=== PATIENT | female | born 1990 | race Caucasian/White ===

== ENCOUNTER 2016-09-08 12:27 | Emergency (ER) | payer BC ==
[2016-09-08] MEDS ORDERED: SODIUM CHLORIDE 0.9% 500 ML IV STA (13:10)
[2016-09-08] MEDS ORDERED: RX INFO: IV CONTRAST WAS GIVEN 1 EACH MISC MISCELLANE PRN (13:10)
[2016-09-08] MEDS ORDERED: SODIUM CHLORIDE 0.9% 1,000 ML IV STA (13:10)
--- NOTE | 2016-09-08 14:25 | ED ---
Abdominal Pain HPI - General Chief Complaint: Abdominal Pain Stated Complaint: Abd Pain Time Seen by Provider: 09/08/16 12:53 Source: patient Mode of arrival: ambulatory Limitations: no limitations - History of Present Illness Initial Comments: Abdominal pain for the last 3 days, it got worse today she was seen in by an urgent care and they did the test, it was negative then did x-ray that shows some dilated bowel loops of small intestine they advised her to come to the ER he denies any gallbladder or appendix related to surgery she does have a history of 1 denies any history of kidney stones and is any fever no chills no nausea no vomiting does have a chronic history of constipation. Review of system is unremarkable otherwise - Related Data Previous Rx's Medication Instructions Recorded Ciprofloxacin HCl [Cipro] 500 mg PO Q12HR #20 tablet 09/08/16 metroNIDAZOLE [Flagyl] 500 mg PO Q8HR #30 tab 09/08/16 Allergies Allergy/AdvReac Type Severity Reaction Status Date / Time No Known Allergies Allergy Verified 09/08/16 12:51 Review of Systems ROS Statement: Those systems with pertinent positive or pertinent negative responses have been documented in the HPI. ROS Other: All systems not noted in ROS Statement are negative. Past Medical History Past Medical History: No Reported History Additional Past Medical History / Comment(s): Migraine headaches, irritable bowel syndrome History of Any Multi-Drug Resistant Organisms: None Reported Past Surgical History: Section Additional Past Surgical History / Comment(s): Ganglion cystectomy on left wrist Past Anesthesia/Blood Transfusion Reactions: No Reported Reaction Past Psychological History: Anxiety Smoking Status: Never smoker Past Alcohol Use History: None Reported Past Drug Use History: None Reported - Past Family History Mother Family Medical History: Hypertension General Exam - General Exam Comments Initial Comments: General: The patient is awake and alert, in no distress, and does not appear acutely ill. Skin: Skin is warm and dry and no rashes or lesions are noted. Eye: Pupils are equal, round and reactive to light, extra-ocular movements are intact; there is normal conjunctiva bilaterally. Ears, nose, mouth and throat: There are moist mucous membranes and no oral lesions. Neck: The neck is supple, there is no tenderness or JVD. Cardiovascular: There is a regular rate and rhythm. No murmur, rub or gallop is appreciated. Respiratory: To auscultation bilateral, no wheezing no rhonchi no distress respiratory stroud noticed Gastrointestinal: Tender in left upper quadrant area as well as left flank area positive bowel sounds no guarding no rebounds Back: There is no tenderness to palpation in the midline. There is no obvious deformity. Musculoskeletal: Normal ROM, no tenderness, There is no pedal edema. There is no calf tenderness or swelling. No cords were appreciated. Neurological: CN II-XII intact, Cranial nerves III through XII are intact. There are no obvious motor or sensory deficits. Coordination appears grossly intact. Speech is normal. Psychiatric: Cooperative, appropriate mood & affect, normal judgment. Limitations: no limitations Course Vital Signs 09/08/16 09/08/16 09/08/16 12:32 14:17 15:22 Temperature 99.1 F 97.8 F Pulse Rate 115 H 88 100 Respiratory 20 16 16 Rate Blood Pressure 139/80 122/79 136/84 O2 Sat by Pulse 99 99 100 Oximetry - Reevaluation(s) Reevaluation #1: 09/08/16 17:01 He does have a history of for constipation though she is very young she is only 26 and recommended after completing a course of Cipro and Flagyl she sees Dr. Alanis/Afshan for colonoscopy exam make sure there is no pathology in the descending colon though she has a no history of ulcerative colitis or Crohn's disease either in the family. There was some free fluid or noticed around the cul-de-sac and the Dr. Rojas is her PRODUCT OW[employer] doctor she was encouraged to see Dr. Rojas Medical Decision Making - Lab Data Result diagrams: 09/08/16 14:15 09/08/16 14:15 Lab Results 09/08/16 09/08/16 09/08/16 Range/Units 13:45 14:15 14:15 WBC 9.8 (3.8-10.6) k/uL RBC 4.78 (3.80-5.40) m/uL Hgb 14.3 (11.4-16.0) gm/dL Hct 41.1 (34.0-46.0) % MCV 85.9 (80.0-100.0) fL MCH 29.8 (25.0-35.0) pg MCHC 34.8 (31.0-37.0) g/dL RDW 12.3 (11.5-15.5) % Plt Count 270 (150-450) k/uL Neutrophils % 73 % Lymphocytes % 20 % Monocytes % 5 % Eosinophils % 1 % Basophils % 0 % Neutrophils # 7.1 (1.3-7.7) k/uL Lymphocytes # 1.9 (1.0-4.8) k/uL Monocytes # 0.5 (0-1.0) k/uL Eosinophils # 0.1 (0-0.7) k/uL Basophils # 0.0 (0-0.2) k/uL Sodium 140 (137-145) mmol/L Potassium 3.7 (3.5-5.1) mmol/L Chloride 105 (98-107) mmol/L Carbon Dioxide 26 (22-30) mmol/L Anion Gap 9 mmol/L BUN 10 (7-17) mg/dL Creatinine 0.73 (0.52-1.04) mg/dL Est GFR (MDRD) Af Amer >60 (>60 ml/min/1.73 sqM) Est GFR (MDRD) Non-Af >60 (>60 ml/min/1.73 sqM) Glucose 115 H (74-99) mg/dL Calcium 8.8 (8.4-10.2) mg/dL Total Bilirubin 0.8 (0.2-1.3) mg/dL AST 17 (14-36) U/L ALT 18 (9-52) U/L Alkaline Phosphatase 75 (38-126) U/L Total Protein 7.2 (6.3-8.2) g/dL Albumin 4.1 (3.5-5.0) g/dL Amylase 59 (30-110) U/L Lipase 77 (23-300) U/L Urine Color Yellow Urine Appearance Cloudy H (Clear) Urine pH 6.5 (5.0-8.0) Ur Specific [place] 1.018 (1.001-1.035) Urine Protein Trace H (Negative) Urine Glucose (UA) Negative (Negative) Urine Ketones Negative (Negative) Urine Blood Small H (Negative) Urine Nitrite Negative (Negative) Urine Bilirubin Negative (Negative) Urine Urobilinogen 2.0 (<2.0) mg/dL Ur Leukocyte Esterase Large H (Negative) Urine RBC 2 (0-5) /hpf Urine WBC 85 H (0-5) /hpf Ur Squamous Epith Cells 5 H (0-4) /hpf Amorphous Sediment Occasional H (None) /hpf Urine Bacteria Occasional H (None) /hpf Urine Mucus Few H (None) /hpf Disposition Clinical Impression: Abdominal pain, Colitis, Cystitis Disposition: HOME SELF-CARE Instructions: Abdominal Pain (ED) Prescriptions: Ciprofloxacin HCl [Cipro] 500 mg PO Q12HR #20 tablet metroNIDAZOLE [Flagyl] 500 mg PO Q8HR #30 tab Referrals: None,Stated [Primary Care Provider] - 1-2 days Leonard Nazario MD [STAFF PHYSICIAN] - 1-2 days Yesi Rojas MD [STAFF PHYSICIAN] - 1-2 days
[2016-09-08 14:26] LABS: Basophils % (A) 0 %; CH 30.8; Eosinophils # (A) 0.1 k/uL (0-0.7); Eosinophils % (A) 1 %; HCT 41.1 % (34.0-46.0); HDW 2.67; HGB 14.3 gm/dL (11.4-16.0); Luc # (Auto) 0.11; Luc % (Auto) 1; Lymphocytes # (A) 1.9 k/uL (1.0-4.8); Lymphocytes % (A) 20 %; MCH 29.8 pg (25.0-35.0); MCHC 34.8 g/dL (31.0-37.0); MCV 85.9 fL (80.0-100.0); Mean Platelet Volume 6.5; Monocytes # (A) 0.5 k/uL (0-1.0); Monocytes % (A) 5 %; Neutrophils # (A) 7.1 k/uL (1.3-7.7); Neutrophils % (A) 73 %; RBC 4.78 m/uL (3.80-5.40); RDW 12.3 % (11.5-15.5); WBC 9.8 k/uL (3.8-10.6); WBC (Perox) 9.51
[2016-09-08 14:32] LABS: Amorphous Sediment,Urine Occasional /hpf; Appearance,Urine Cloudy (Clear); Bacteria,Urine Occasional /hpf; Bilirubin,Urine Negative (Negative); Glucose,Urine (UA) Negative (Negative); Ketones,Urine Negative (Negative); Leukocyte Esterase,Urine Large (Negative); Mucus,Urine Few /hpf; Nitrite,Urine Negative (Negative); PH, Urine 6.5 (5.0-8.0); Particle Count 8078; Protein,Urine Trace (Negative); RBC,Urine 2 /hpf (0-5); Specific Gravity,Urine 1.018 (1.001-1.035); Squamous Epithelial Cell,Urine 5 /hpf (0-4); UA Billing (MACRO vs. MICRO) MICRO; WBC,Urine 85 /hpf (0-5)
[2016-09-08 14:43] LABS: ALT 18 U/L (9-52); AST 17 U/L (14-36); Alkaline Phosphatase 75 U/L (38-126); Amylase 59 U/L (30-110); Anion Gap 9 mmol/L; Blood Urea Nitrogen 10 mg/dL (7-17); Calcium 8.8 mg/dL (8.4-10.2); Carbon Dioxide 26 mmol/L (22-30); Chloride 105 mmol/L (98-107); Glucose 115 mg/dL (74-99); Non-African American GFR(MDRD) >60 (>60 ml/min/1.73 sqM); Potassium 3.7 mmol/L (3.5-5.1); Sodium 140 mmol/L (137-145); Total Bilirubin 0.8 mg/dL (0.2-1.3); Total Protein 7.2 g/dL (6.3-8.2)
--- NOTE | 2016-09-08 14:59 | CT ---
EXAMINATION TYPE: CT abdomen pelvis w con DATE OF EXAM: 09/08/2016 2:50 PM COMPARISON: NONE HISTORY: Pain more on the Lt CT DLP: 1513 mGycm CONTRAST: CT scan of the abdomen and pelvis is performed without Oral Contrast and with IV Contrast, patient in jected with 100 mL of Omnipaque 300. FINDINGS: LUNG BASES-: No visible nodule. No infiltrate. LIVER/GB: No calcified gallstones. No space occupying hepatic lesion. Biliary tree is of normal ca liber. PANCREAS: No inflammation. No distinct mass. SPLEEN: No splenic enlargement. No lesion seen. ADRENALS: No nodule. No thickening. KIDNEYS/BLADDER: No hydronephrosis. No nephrolithiasis. No disctinct renal mass. Urinary bladder g rossly unremarkable. BOWEL: Normal appendix. Wall thickening involving the distal descending colon with surrounding mild i nflammatory change. The findings may reflect a mild diverticulitis although there are only a few scat tered tiny diverticula identified throughout the colon. Additional consideration is that of colitis. No evidence of perforation or abscess. Small bowel is of normal caliber. GENITAL ORGANS: Simple appearing right ovarian cyst at 2.4 cm. Left ovary is grossly unremarkable. F ree fluid within the cul-de-sac. Uterus is felt to be unremarkable. LYMPH NODES: No greater than 1cm abdominal or pelvic lymph nodes are appreciated. AORTA: No significant abnormality. OSSEOUS STRUCTURES: No significant abnormality is seen. OTHER: No significant additional abnormality is seen. IMPRESSION: 1. Distal descending colonic diverticulitis versus colitis. See above. 2. Free fluid within the cul-de-sac. Simple right ovarian cyst.
[2016-09-08] MEDS ORDERED: cefTRIAXone 2,000 MG in SODIUM CHLORIDE 0.9% 100 ML IVPB STA (15:02)
[2016-09-08] MEDS ORDERED: metroNIDAZOLE 500 MG TAB PO STA (15:03)
[2016-09-08 15:23] VITALS: TEMP 97.8
[2016-09-08 17:11] VITALS: BP 118/68; PULSE 81; RESP 18
== END 2016-09-08 17:11 | disposition home or self-care (01) ==
LOC: EC 12:27
DX: K52.9 Noninfective gastroenteritis and colitis, unspecified (principal); N30.90 Cystitis, unspecified without hematuria
CPT/HCPCS: 99284; 96365; 96361 ×2; 36415; 80053; 82150; 83690; 85025; 81001; 74177; J0696; Q9967

== ENCOUNTER → 2017-06-12 | Outpatient (CLI) | payer BC ==
--- NOTE | 2017-06-12 14:53 | NM ---
Nuclear medicine hepatobiliary scan. HISTORY: Pain. DOSAGE: The patient received 8 fluid oz. Ensure Plus. and 5.3 mCi of Technetium 99m Choletec. FINDINGS: There is normal hepatic extraction. The gallbladder is seen by 25minutes. There is bilia ry to bowel clearance by 25 minutes. Ejection fraction is 82%. IMPRESSION: 1. Normal filling of the gallbladder with no diagnostic evidence of cholecystitis. 2. Ejection fraction of 82% which can occasionally be seen with hyperdynamic gallbladder. Correlate c linically.
== END | disposition home or self-care (01) ==
LOC: RADNMMAIN 12:39
PROVIDERS: ATTEND Physician Assistant
DX: R10.11 Right upper quadrant pain (principal)
CPT/HCPCS: 78226; A9537

== ENCOUNTER → 2017-07-24 | Day surgery (SDC) | payer BC ==
[2017-06-23 15:35] VITALS: BMI 28.2
[~2017-07-24] MED LIST: BUPIVACAINE (PF) 0.25% 30 ML VIAL SQ ONE; DEXAMETHASONE SOD PHOSPHATE 10 MG/ML 1 ML VIAL IV ONE; GLYCOPYRROLATE 0.2 MG/ML 2 ML VIAL ONE; HEPARIN SODIUM,PORCINE 5,000 UNIT/ML 1 ML VIAL SQ ONE; HYDROcodone/APAP 7.5-325MG 1 EACH TAB PO ONE; HYDROmorphone 0.5 MG/0.5 ML SYRINGE IVP PRN; KETOROLAC 30 MG/ML 1 ML VIAL IVP ONE; LIDOCAINE 1% 20 ML VIAL (10MG/ML) FOR IV START INTRADERMA ONE; LIDOCAINE 1% INJ 10MG/ML (20 ML MDV) ONE; MIDAZOLAM 2 MG/2 ML VIAL ONE; MORPHINE SULFATE 10 MG/ML SYRINGE ONE; MORPHINE SULFATE 4 MG/ML SYRINGE IV PRN; NEOSTIGMINE 1 MG/ML 10 ML VIAL ONE; ONDANSETRON 4 MG/2 ML VIAL IVP ONE; ONDANSETRON 4 MG/2 ML VIAL IVP PRN; PROPOFOL 10 MG/ML 20 ML VIAL IV ONE; ROCURONIUM BROMIDE 10 MG/ML 10 ML VIAL IV ONE; ceFAZolin IN SWFI 2 GM/20 ML SYRINGE IVP ONE; diphenhydrAMINE 50 MG/ML 1 ML VIAL IVP ONE; diphenhydrAMINE 50 MG/ML 1 ML VIAL ONE; fentaNYL (PF) 50 MCG/ML 2 ML AMP ONE
[2017-07-24] MEDS: LACTATED RINGERS 1,000 ML IV SCH ×2 (07:15→07:55)
[2017-07-24] MEDS: MIDAZOLAM 2 MG/2 ML VIAL IV ONE ×2 (07:15→07:21)
--- NOTE | 2017-07-24 07:50 | P.GSHP ---
History of Present Illness H&P Date: 07/24/17 Chief Complaint: Right upper Quadrant pain The seventh 18-year-old female referred from Stefani Damico PA-C. Patient presents today for laparoscopic cholestatic. She's had complaints of right quadrant pain. Her recent HIDA scan shows elevated ejection fraction consistent with chronic: Cholecystitis and biliary hyperkinesia. Past Medical History Past Medical History: No Reported History Additional Past Medical History / Comment(s): HX NAUSEA ABD PAIN, DIVERTICULITIS , Migraine headaches, IBS History of Any Multi-Drug Resistant Organisms: None Reported Past Surgical History: Section Additional Past Surgical History / Comment(s): Ganglion cystectomy on left wrist Past Anesthesia/Blood Transfusion Reactions: No Reported Reaction Smoking Status: Never smoker - Past Family History Mother Family Medical History: Hypertension Medications and Allergies Home Medications Medication Instructions Recorded Confirmed Type No Known Home Medications [No 06/23/17 07/24/17 History Known Home Medications] Allergies Allergy/AdvReac Type Severity Reaction Status Date / Time No Known Allergies Allergy Verified 07/24/17 06:43 Surgical - Exam Vital Signs Temp Pulse Resp BP Pulse Ox 98.6 F 100 18 148/90 98 07/24/17 06:48 07/24/17 06:48 07/24/17 06:48 07/24/17 06:48 07/24/17 06:48 - General well developed, no distress - Eyes PERRL - ENT normal pinna - Respiratory normal expansion - Cardiovascular Rhythm: regular - Abdomen Abdomen: soft, non tender Assessment and Plan Assessment: Chronic cholecystitis Abnormal HIDA scan We will perform laparoscopic cholecystectomy
--- NOTE | 2017-07-24 08:53 | P.OP ---
Date of Procedure: 07/24/17 Preoperative Diagnosis: Cholecystitis Postoperative Diagnosis: Cholecystitis Procedure(s) Performed: Laparoscopic cholecystectomy Anesthesia: JASMIN Surgeon: Chandler Peña Estimated Blood Loss (ml): 5 Pathology: other (gAll bladder) Condition: stable Disposition: PACU Description of Procedure: The patient was placed on the operating table. The patient received a general endotracheal tube anesthesia. The patients abdomen was prepped and draped in the usual sterile fashion. Through an infraumbilical stab incision, the fascia of the anterior abdominal wall was grasped with a pair of Kochers and then the Veress needle was placed in the peritoneal cavity. Position of the Veress needle was confirmed with positive drop test. The abdomen was then insufflated. After adequate insufflation, the 10 mm trocar was placed in the peritoneal cavity. Following this the laparoscope was placed in the peritoneal cavity. The patient was placed in the head-up, right side up position and then a 5 mm trocar was placed in the right lateral and right subcostal position under direct visualization. A 8 mm trocar was placed in the epigastric position. The gallbladder was grasped in the fundus and infundibulum. Traction on the gallbladder was placed in the lateral and the cephalad positions. The triangle of Calot was visualized.. The cystic duct was bluntly dissected until the union of the cystic duct and common bile duct was seen. The cystic duct was then divided and sealed with the Harmonic scissors. A PDS Endoloop was then placed throughout the cystic duct stump. The cystic artery divided and sealed with the Harmonic scissors. The gallbladder was then removed from the liver bed using Harmonic scissors. The gallbladder was then extracted through the epigastric port site. Operative field was checked for any bleeding spots and Harmonic scissors was used to coagulate the liver bed. The abdomen was irrigated. The trocars were removed. The skin was closed using interrupted 3-0 Vicryl suture. Dermabond dressing were applied. The patient tolerated the procedure well.
[2017-07-24 09:00] VITALS: TEMP 97.2
[2017-07-24] MEDS: fentaNYL (PF) 50 MCG/ML 2 ML AMP IVP ONE ×2 (09:05→09:32)
[2017-07-24 11:49] VITALS: BP 126/72; PULSE 73; RESP 18
== END ==
LOC: OR 06:33
PROVIDERS: ATTEND Surgery
DX: K81.1 Chronic cholecystitis (principal); G43.909 Migraine, unspecified, not intractable, without status migrainosus; K58.9 Irritable bowel syndrome, unspecified
CPT/HCPCS: 88304; 47562; J2250; J1200; J1644; J1100; J2710; J2270; J2405; J2001; J3010; J1885; J2704; J0690

== ENCOUNTER 2017-08-29 09:32 | Day surgery (SDC) | payer BC ==
[2017-08-28 09:23] VITALS: BMI 27.9
[~2017-08-29 09:32] MED LIST changes: -BUPIVACAINE (PF) 0.25% 30 ML VIAL SQ ONE; -DEXAMETHASONE SOD PHOSPHATE 10 MG/ML 1 ML VIAL IV ONE; -GLYCOPYRROLATE 0.2 MG/ML 2 ML VIAL ONE; -HEPARIN SODIUM,PORCINE 5,000 UNIT/ML 1 ML VIAL SQ ONE; -HYDROcodone/APAP 7.5-325MG 1 EACH TAB PO ONE; -HYDROmorphone 0.5 MG/0.5 ML SYRINGE IVP PRN; -KETOROLAC 30 MG/ML 1 ML VIAL IVP ONE; +LACTATED RINGERS 1,000 ML IV SCH; -LIDOCAINE 1% 20 ML VIAL (10MG/ML) FOR IV START INTRADERMA ONE; +LIDOCAINE 1% 20 ML VIAL (10MG/ML) FOR IV START INTRADERMA PRN; -LIDOCAINE 1% INJ 10MG/ML (20 ML MDV) ONE; -MIDAZOLAM 2 MG/2 ML VIAL ONE; -MORPHINE SULFATE 10 MG/ML SYRINGE ONE; -MORPHINE SULFATE 4 MG/ML SYRINGE IV PRN; -NEOSTIGMINE 1 MG/ML 10 ML VIAL ONE; -ONDANSETRON 4 MG/2 ML VIAL IVP ONE; -ONDANSETRON 4 MG/2 ML VIAL IVP PRN; -PROPOFOL 10 MG/ML 20 ML VIAL IV ONE; -ROCURONIUM BROMIDE 10 MG/ML 10 ML VIAL IV ONE; -ceFAZolin IN SWFI 2 GM/20 ML SYRINGE IVP ONE; -diphenhydrAMINE 50 MG/ML 1 ML VIAL IVP ONE; -diphenhydrAMINE 50 MG/ML 1 ML VIAL ONE; -fentaNYL (PF) 50 MCG/ML 2 ML AMP ONE
[2017-08-29 10:20] VITALS: TEMP 98.6
[2017-08-29] MEDS ORDERED: PROPOFOL 10 MG/ML 20 ML VIAL IV ONE (10:29)
[2017-08-29] MEDS ORDERED: GLUCAGON 1 MG/ML VIAL ONE (10:29)
[2017-08-29] MEDS ORDERED: LIDOCAINE 1% INJ 10MG/ML (20 ML MDV) ONE (10:29)
--- NOTE | 2017-08-29 10:31 | P.GSHP ---
History of Present Illness H&P Date: 08/29/17 Chief Complaint: GERD, diverticulitis This a 27-year-old female referred from Stefani Damico PA-C. Patient presents today for EGD colonoscopy. She's had issues with GERD. She also has a previous history of diverticulitis. Past Medical History Past Medical History: Neurologic Disorder Additional Past Medical History / Comment(s): , DIVERTICULITIS, Migraine headaches, IBS History of Any Multi-Drug Resistant Organisms: None Reported Past Surgical History: Section, Cholecystectomy Additional Past Surgical History / Comment(s): Ganglion cystectomy on left wrist Past Anesthesia/Blood Transfusion Reactions: No Reported Reaction Smoking Status: Never smoker - Past Family History Mother Family Medical History: Hypertension Medications and Allergies Home Medications Medication Instructions Recorded Confirmed Type No Known Home Medications [No 08/28/17 08/29/17 History Known Home Medications] Allergies Allergy/AdvReac Type Severity Reaction Status Date / Time No Known Allergies Allergy Verified 08/29/17 10:18 Surgical - Exam Vital Signs Temp Pulse BP Pulse Ox 98.6 F 96 145/85 99 08/29/17 10:18 08/29/17 10:18 08/29/17 10:18 08/29/17 10:18 - General well developed, no distress - Eyes PERRL - ENT normal pinna - Neck no masses - Respiratory normal expansion - Cardiovascular Rhythm: regular - Abdomen Abdomen: soft, non tender Assessment and Plan Assessment: GERD, diverticulitis. We'll perform EGD and colonoscopy.
--- NOTE | 2017-08-29 10:52 | P.OP ---
Date of Procedure: 08/29/17 Preoperative Diagnosis: GERD Diverticulitis Postoperative Diagnosis: Antral gastritis Small hiatal hernia Mild esophagitis Procedure(s) Performed: EGD Colonoscopy Anesthesia: MAC Surgeon: Chandler Peña Pathology: other (Antrum, esophagus) Condition: stable Disposition: PACU Description of Procedure: Patient's placed on the endoscopy table in the lateral position. She received IV sedation. The gastroscope was placed oropharynx and passed in the esophagus into the stomach. Scope was then placed through the pylorus. The first and second portion of the duodenum appeared normal. The scope was then brought back the antrum and this was mildly inflamed. A biopsies performed. The scope was then retroflexed and the remainder stomach appeared normal. There was a small hiatal hernia. The GE junction was at 38 cm. The distal esophagus appeared mildly inflamed a biopsies performed. The proximal esophagus appeared normal. Next digital rectal exam was performed. The flexible colonoscope was then placed patient anus and passed throughout the colon. The colon came to a brought termination at 70 cm. It was impossible to dilate the colon past the scope through this area. Glucagon was given. There is still no apparent change in the caliber the colon. It was impossible passed the scope. At this point scope withdrawn. The descending colon, sigmoid colon and rectum appeared normal. The scope was withdrawn for patient. She was scheduled for a barium enema.
[2017-08-29 11:27] VITALS: BP 1123/77; PULSE 79; RESP 18
--- NOTE | 2017-08-29 17:12 | FL ---
EXAMINATION TYPE: FL barium enema DATE OF EXAM: 08/29/2017 CLINICAL HISTORY: 27-year-old female incomplete colonoscopy, follow-up to colitis diagnosed on 017. TECHNIQUE: A double contrast barium enema study is performed. Total fluoroscopy time: 1 minute 15 seconds. Total images: 43 COMPARISON: Correlation CT 09/08/2016. FINDINGS: Invoice Checker view of the abdomen shows overall non-obstructive bowel gas pattern. Residual mild to moderate air within the colon. Incidentally, there is left L5 hemisacralization. Pelvic phlebolith. Osteitis pubis. During contrast filling of the colon, we note a very tortuous sigmoid colon and tortuous transverse c olon as well. This did cause difficulty in clearing contrast after initial filling. A single small diverticulum is noted in the mid sigmoid colon. No evidence of any mass or polyp, obst ructing or constricting lesion throughout the colon. There is otherwise, no significant diverticular disease noted. IMPRESSION: 1. Solitary small diverticulum in the mid sigmoid colon. 2. Tortuous sigmoid and transverse colons. Otherwise, normal barium enema study. 3. Incidentally, there is left L5 hemisacralization. Correlate for any low back pain as findings can lead to Bertolotti's syndrome in some patients.
== END 2017-08-29 11:41 | disposition home or self-care (01) ==
LOC: ORWHC2ENDO 09:32
PROVIDERS: ATTEND Surgery
DX: K21.0 Gastro-esophageal reflux disease with esophagitis (principal); K29.70 Gastritis, unspecified, without bleeding; K44.9 Diaphragmatic hernia without obstruction or gangrene; K57.30 Diverticulosis of large intestine without perforation or abscess without bleeding; Q43.8 Other specified congenital malformations of intestine; G43.909 Migraine, unspecified, not intractable, without status migrainosus; K58.9 Irritable bowel syndrome, unspecified
CPT/HCPCS: 81025; 88305; 74270; 43239; 45330; J1610; J2001; J2704; 45378

== ENCOUNTER → 2017-08-29 | Outpatient (CLI) | payer BC | END | disposition home or self-care (01) | LOC: RADFLMAIN 13:44 | PROVIDERS: ATTEND Surgery | DX: Z53.9 Procedure and treatment not carried out, unspecified reason (principal) ==

== ENCOUNTER 2022-08-21 10:50 | Outpatient (CLI) | payer BC ==
[2022-08-21 11:37] LABS: Appearance,Urine Clear (Clear); Bilirubin,Urine Negative (Negative); Blood,Urine Negative (Negative); Color,Urine Yellow; Glucose,Urine (UA) Negative (Negative); Ketones,Urine Negative (Negative); Leukocyte Esterase,Urine Small (Negative); Mucus,Urine Moderate /hpf; Nitrite,Urine Negative (Negative); PH, Urine 6.5 (5.0-8.0); Protein,Urine Negative (Negative); RBC,Urine 1 /hpf (0-5); Specific Gravity,Urine 1.019 (1.001-1.035); Squamous Epithelial Cell,Urine 4 /hpf (0-4); Urobilinogen,Urine <2.0 mg/dL (<2.0); WBC,Urine 1 /hpf (0-5)
[2022-08-21 12:23] VITALS: BP 121/77; PULSE 90; RESP 18; TEMP 97.1
--- NOTE | 2022-08-30 18:05 | P.MSEPDOC ---
Presenting Problems - Arrival Data Date of Arrival on Unit: 08/21/22 Time of Arrival on Unit: 10:50 Mode of Transport: Ambulatory - Complaint OB-Reason for Admission/Chief Complaint: Pain Comment: c/o right back pain. Medical History - Information : 3 Para: 2 Term: 2 : 0 Abortions: Spontaneous or Elective: 0 Number of Living Children: 2 - Gestational Age Gestational Age by EDGAR (wks/days): 35 Weeks and 4 Days Review of Systems - Review of Systems Constitutional: No problems Breast: No problems ENT: No problems Cardiovascular: No problems Respiratory: No problems Gastrointestinal: No problems Genitourinary: No problems Musculoskeletal: No problems Neurological: No problems Skin: No problems Vital Signs - Temperature Temperature: 97.1 F Temperature Source: Temporal Artery Scan - Pulse Right Pulse Rate: 90 Pulse Assessment Method: Automatic Cuff - Respirations Respiratory Rate: 18 Oxygen Delivery Method: Room Air O2 Sat by Pulse Oximetry: 97 - Blood Pressure Right Arm Blood Pressure: 121/77 Blood Pressure Mean: 91 Blood Pressure Source: Automatic Cuff Medical Screen Scoring - Assessment - Baby A Baseline FHR: 140 Heart Rate - NICHD Category: Category I (Normal) NST: Reactive Physician Notification - Physician Notified Physician Notified Date: 08/21/22 Physician Notified Time: 11:46 Physician: Dr. Shannon New Order Received: Yes (recheck blood pressure.) - Notification Comment Comment: reassess blood pressure 121/77. Spoke with physician at nurses station. Pt cleared for discharge home with instructions. Maternal Triage Index - Maternal Triage Index Presenting for scheduled procedure w/no complaint: No - Stat/Priority 1 Stat Priority 1: No - Urgent/Priority 2 Urgent Priority 2: No - Prompt/Priority 3 Prompt Priority 3: No - Non-Urgent/Priority 4 Non-Urgent Priority 4: Yes Criteria Met for Priority 4: c/o of lower right back pain. Disposition - Disposition OB Disposition: Discharge to home Discharge Date: 08/21/22 Discharge Time: 11:54 I agree with the RN Medical Screening Exam: Yes Case reviewed; plan agreed upon as documented in EMR&OBIX.: Yes Diagnosis: FALSE LABOR BEFORE 37 COMPLETED WEEKS OF GEST, THIRD TRI
== END 2022-08-21 11:54 | disposition home or self-care (01) ==
LOC: FBPOP 10:50
PROVIDERS: ATTEND Obstetrics & Gynecology Obstetrics
DX: O47.03 False labor before 37 completed weeks of gestation, third trimester (principal); Z3A.35 35 weeks gestation of pregnancy; Z88.6 Allergy status to analgesic agent
CPT/HCPCS: 59025; 81001; 99213

== ENCOUNTER 2022-08-22 16:43 | Outpatient (CLI) | payer BC ==
[2022-08-22] MEDS: LACTATED RINGERS 1,000 ML IV SCH ×2 (17:33→18:08)
[2022-08-22 18:59] VITALS: BP 113/71; PULSE 98; RESP 18; TEMP 97.3
--- NOTE | 2022-09-24 11:28 | P.MSEPDOC ---
Presenting Problems - Arrival Data Date of Arrival on Unit: 08/22/22 Time of Arrival on Unit: 16:43 Mode of Transport: Ambulatory - Complaint OB-Reason for Admission/Chief Complaint: Acute Nausea/Vomiting Medical History - Information : 3 Para: 2 Term: 2 : 0 Abortions: Spontaneous or Elective: 0 Number of Living Children: 2 - Gestational Age Gestational Age by EDGAR (wks/days): 35 Weeks and 5 Days Review of Systems - Review of Systems Constitutional: No problems Breast: No problems ENT: No problems Cardiovascular: No problems Respiratory: No problems Gastrointestinal: No problems Genitourinary: No problems Musculoskeletal: No problems Neurological: No problems Skin: No problems Vital Signs - Temperature Temperature: 97.3 F Temperature Source: Temporal Artery Scan - Pulse Right Pulse Rate: 98 Pulse Assessment Method: Pulse Oximetry - Respirations Respiratory Rate: 18 Oxygen Delivery Method: Room Air O2 Sat by Pulse Oximetry: 99 - Blood Pressure Right Arm Blood Pressure: 113/71 Blood Pressure Mean: 85 Blood Pressure Source: Automatic Cuff Medical Screen Scoring - Cervical Exam Dilation (cm): 1 Station: -3 Membranes: Intact - Uterine Contractions Frequency From (mins): 2 Frequency To (mins): 5 Duration From (seconds): 30 Duration To (seconds): 60 Intensity: Mild Resting: Soft to palpation - Assessment - Baby A Baseline FHR: 140 NST: Reactive Physician Notification - Physician Notified Physician Notified Date: 08/22/22 Physician Notified Time: 18:45 Physician: Delfin Mendoza Order Received: Yes (discharge home) Maternal Triage Index - Maternal Triage Index Presenting for scheduled procedure w/no complaint: No - Stat/Priority 1 Stat Priority 1: No - Urgent/Priority 2 Urgent Priority 2: No - Prompt/Priority 3 Prompt Priority 3: No - Non-Urgent/Priority 4 Non-Urgent Priority 4: Yes Criteria Met for Priority 4: Pt hydrated with IV fluids and feeling better Disposition - Disposition OB Disposition: Discharge to home, Written follow up instructions reviewed Discharge Date: 08/22/22 Discharge Time: 18:50 I agree with the RN Medical Screening Exam: Yes Physician's MSE Comment: I have neither seen nor examined the patient. Case reviewed; plan agreed upon as documented in EMR&OBIX.: Yes Diagnosis: RELATED CONDITIONS, UNSPECIFIED, THIRD TRIMESTER
== END 2022-08-22 18:50 | disposition home or self-care (01) ==
LOC: FBPOP 16:43
PROVIDERS: ATTEND Obstetrics & Gynecology
DX: O21.9 Vomiting of pregnancy, unspecified (principal); Z3A.35 35 weeks gestation of pregnancy; Z88.6 Allergy status to analgesic agent
CPT/HCPCS: 59025; 96360; 99213; 99214

== ENCOUNTER 2022-09-14 13:37 | Inpatient (IN) | payer BC ==
[2022-09-14] MEDS ORDERED: TERBUTALINE 1 MG/ML VIAL SQ PRN (15:05)
[2022-09-14] MEDS ORDERED: LIDOCAINE 0.5% (PF) 5 MG/ML (50 ML SDV) SQ PRN (15:05)
[2022-09-14] MEDS ORDERED: CARBOPROST TROMETHAMINE 250 MCG/ML 1 ML AMP IM PRN (15:05)
[2022-09-14] MEDS ORDERED: miSOPROStoL 200 MCG TAB PO PRN (15:05)
[2022-09-14] MEDS ORDERED: METHYLERGONOVINE 0.2 MG/ML 1 ML AMP IM PRN (15:05)
[2022-09-14] MEDS ORDERED: OXYTOCIN 10 UNIT/ML 1 ML VIAL IM PRN (15:05)
[2022-09-14] MEDS ORDERED: TRANEXAMIC ACID IN NACL,ISO-OS 1,000 MG in EMPTY BAG 1 BAG IV PRN (15:05)
[2022-09-14] MEDS: LACTATED RINGERS 1,000 ML IV SCH ×3 (15:13→16:15)
[2022-09-14] MEDS ORDERED: OXYTOCIN 30 UNITS/500 ML NS 30 UNIT in SALINE 1 500ML.BAG IV SCH ×2 (15:15→22:15)
[2022-09-14 15:17] LABS: Basophils % (A) 0 %; Eosinophils # (A) 0.1 k/uL (0-0.7); Eosinophils % (A) 1 %; HCT 37.3 % (34.0-46.0); HGB 12.4 gm/dL (11.4-16.0); Lymphocytes # (A) 2.2 k/uL (1.0-4.8); Lymphocytes % (A) 23 %; MCH 26.4 pg (25.0-35.0); MCHC 33.2 g/dL (31.0-37.0); MCV 79.3 fL (80.0-100.0); Mean Platelet Volume 7.7; Monocytes # (A) 0.6 k/uL (0-1.0); Monocytes % (A) 6 %; Neutrophils # (A) 6.6 k/uL (1.3-7.7); Neutrophils % (A) 68 %; Platelet Count 300 k/uL (150-450); RDW 14.5 % (11.5-15.5); WBC 9.6 k/uL (3.8-10.6)
[2022-09-14] MEDS ORDERED: SODIUM CHLORIDE 0.9% 100 ML BAG ONE (15:37)
[2022-09-14] MEDS ORDERED: ROPIVACAINE 5 MG/ML 20 ML AMPULE ONE (15:37)
[2022-09-14] MEDS ORDERED: fentaNYL (PF) 50 MCG/ML 5 ML AMP ONE (15:37)
[2022-09-14] MEDS ORDERED: PENICILLIN G POTASSIUM 5,000,000 UNIT in DEXTROSE 5% IN WATER 100 ML IVPB STA ×2 (17:23)
[2022-09-14] MEDS ORDERED: PENICILLIN G POTASSIUM 2,500,000 UNIT in DEXTROSE 5% IN WATER 100 ML IVPB SCH ×2 (21:30)
--- NOTE | 2022-09-14 21:57 | P.HPOB ---
History of Present Illness H&P Date: 09/14/22 Chief Complaint: Spontaneous rupture of membranes at 39-0/7 weeks This is a 32-year-old 3 para 2001 woman with an estimated due date of 09/21/2022 who presents with spontaneous rupture of membranes at 39 weeks gestation. She reports a gush of clear fluid noted at approximately 1 PM. She was irregularly casey. She presented to labor and delivery triage where rupture of membranes was confirmed. She was 3+ centimeters dilated at that time. She was casey every 3-5 minutes and uncomfortable requesting an epidural anesthetic. is complicated by history of previous low transverse section followed by successful vaginal after . She desires a trial of labor. She has been counseled regarding her options in the office setting. Laboratory data: Blood type O+, antibody screen negative, rubella immune, VDRL nonreactive, hepatitis B surface antigen negative, HIV negative, gonorrhea and clinic cultures negative, group B strep status positive. Glucose tolerance testing normal limits Review of Systems All systems: negative Past Medical History Past Medical History: Neurologic Disorder Additional Past Medical History / Comment(s): DIVERTICULITIS, Migraine headaches, IBS History of Any Multi-Drug Resistant Organisms: None Reported Past Surgical History: Section, Cholecystectomy Additional Past Surgical History / Comment(s): Ganglion cystectomy on left wrist Past Anesthesia/Blood Transfusion Reactions: No Reported Reaction Past Psychological History: Anxiety Smoking Status: Never smoker Past Alcohol Use History: None Reported Past Drug Use History: None Reported - Past Family History Mother Family Medical History: Hypertension Medications and Allergies Home Medications Medication Instructions Recorded Confirmed Type FLUoxetine HCL [PROzac] 40 mg PO DAILY 08/21/22 09/14/22 History busPIRone HCL [Buspirone HCl] 5 mg PO DAILY 08/21/22 09/14/22 History Vit No.179/Iron/Folic 1 each PO DAILY 08/22/22 09/14/22 History [ Tablet] Allergies Allergy/AdvReac Type Severity Reaction Status Date / Time NSAIDS (Non-Steroidal AdvReac Rash/Hives Verified 09/14/22 13:53 Anti-Inflamma Exam Vital Signs Temp Pulse Resp BP Pulse Ox 09/14/22 15:05 96.8 F L 83 16 131/82 09/14/22 13:53 97.5 F L 98 16 126/87 99 Intake and Output 09/14/22 09/14/22 09/14/22 06:59 14:59 22:59 Other: Weight 93.894 kg 93.894 kg On my initial evaluation the patient was 5+ centimeters dilated with a fore bag was ruptured. Clear fluid was noted. heart tones at that time were category 1 and she was casey regularly with Pitocin augmentation. She is comfortable with an epidural anesthetic. Results Result Diagrams: 09/14/22 15:05 Abnormal Lab Results - Last 24 Hours (Table) 09/14/22 Range/Units 15:05 MCV 79.3 L (80.0-100.0) fL Assessment and Plan (1) Term Current Visit: Yes Status: Acute Code(s): Z34.90 - ENCNTR FOR SUPRVSN OF NORMAL , UNSP, UNSP TRIMESTER SNOMED Code(s): 21303777 (2) Previous section Current Visit: No Status: Acute Code(s): Z98.89 - OTHER SPECIFIED POSTPROCE DURAL STATES * DO NOT USE * SNOMED Code(s): 756470101 (3) GBS (group B Streptococcus carrier), +RV culture, currently Current Visit: Yes Status: Acute Code(s): O99.820 - STREPTOCOCCUS B CARRIER STATE COMPLICATING SNOMED Code(s): 4163189453770 Plan: This is a 32-year-old 3 para 2002 woman who is admitted for trial of labor after section. She had spontaneous rupture of membranes. She received an epidural anesthetic and is currently comfortable receiving group B strep prophylactic antibiotics. At the time I official initial evaluation heart tones are category 1 and anticipate normal spontaneous vaginal delivery. Patient has been previously counseled in the office regarding the risks of trial of labor after which includes uterine rupture, distress and potential maternal or injury. She understands these risks and again previously had signed consent forms in the office.
[2022-09-14] MEDS ORDERED: SIMETHICONE 80 MG CHEWABLE PO PRN (22:03)
[2022-09-14] MEDS ORDERED: diphenhydrAMINE 50 MG CAP PO PRN (22:03)
[2022-09-14] MEDS ORDERED: BENZOCAINE/MENTHOL SPRAY 1 GM/SPRAY AEROSOL TOPICAL PRN (22:03)
[2022-09-14] MEDS ORDERED: diphenhydrAMINE 25 MG CAP PO PRN (22:03)
[2022-09-14] MEDS ORDERED: LANOLIN CREAM 5 GM TUBE TOPICAL PRN (22:03)
[2022-09-14] MEDS ORDERED: ZOLPIDEM 5 MG TAB PO PRN (22:03)
[2022-09-14] MEDS ORDERED: diphenhydrAMINE 50 MG/ML 1 ML VIAL IVP PRN ×2 (22:03)
[2022-09-14] MEDS ORDERED: HYDROCORTISONE 2.5% RECTAL CREAM 30 GM TUBE RECTAL PRN (22:03)
--- NOTE | 2022-09-14 22:03 | P.PROBDLV ---
Vaginal Delivery Note - . Vaginal Delivery Note: Findings: Male infant in the vertex left occiput anterior position with nuchal cord 1. Apgars 4 at 1 minute and 7 at 5 minutes and 9 at 10 minutes weighing 7 lbs. 7 oz. Second-degree perineal laceration. Intact, three-vessel cord placenta with dark adherent clot covering approximately 50% of the placental surface consistent with possible abruption. EBL was approximately 250 mL's. Delivery summary: This is a 32-year-old 3 para 2002 woman who was admitted with spontaneous rupture of membranes at 39 weeks gestation. Should a history of a previous low transverse section followed by successful vaginal delivery in the past. She desired a trial of labor after section. She was counseled in the setting regarding risks of trial of labor after section. Following admission she was 3+ centimeters dilated. She was irregularly casey however uncomfortable and received an epidural anesthetic. Upon my initial evaluation the patient was 5+ centimeters dilated at approximately 7 PM. There was a small fore bag that was ruptured and clear fluid was noted. Pitocin augmentation was continued. She received group B strep prophylactic antibiotics. She did progress to 9+ centimeters dilated and began having repetitive variable decelerations. She progressed to complete with extremely strong urge to push. With maternal effort there was good descent of the vertex. There were deep variable decelerations to approximately 80-90 bpm the did return to approximate 105 bpm between contractions. She was making excellent progress and did push to . She was repositioned in the modified Gavin position and with additional maternal effort the head did deliver from the left occiput anterior position there was a tight nuchal cord that was reduced. The anterior followed by the posterior shoulders were then delivered without difficulty and the rest the was delivered onto the field. The nose and mouth were bulb suctioned and the cord was clamped and cut. The infant was taken to the warmer where Apgars were 4 at 1 minute and 7 at 5 minutes and 9 at 10 minutes. An intact three-vessel cord placenta was expressed rapidly following delivery. There was some dark adherent clot to the placenta consistent with possible abruption. The perineum was inspected and a second- degree laceration was noted. This was infused with lidocaine and repaired with 3-0 Vicryl suture. The uterus was massaged and was noted to be firm at the level of the umbilicus. Following the repair she did have some increase in bleeding. The uterus was massaged and this improved significantly. Bimanual examination was performed and the uterus was firm. She was given Methergine IM prophylactically as well as Pitocin per protocol through the IV. EBL was approximately 250 mL's. The perineum vagina and cervix were further inspected and no further lacerations were noted. All counts were correct and both mother and infant were doing well post delivery in the room.
--- NOTE | 2022-09-14 22:09 | P.MSEPDOC ---
Presenting Problems - Arrival Data Date of Arrival on Unit: 09/14/22 Time of Arrival on Unit: 13:37 Mode of Transport: Ambulatory - Complaint OB-Reason for Admission/Chief Complaint: Possible Onset of Labor, Rule Out SROM Medical History - Information : 3 Para: 2 Term: 2 : 0 Abortions: Spontaneous or Elective: 0 Number of Living Children: 2 - Gestational Age Gestational Age by EDGAR (wks/days): 39 Weeks and 0 Days - History Complications: Prior Review of Systems - Review of Systems Constitutional: No problems Breast: No problems ENT: No problems Cardiovascular: No problems Respiratory: No problems Gastrointestinal: No problems Genitourinary: No problems Musculoskeletal: No problems Neurological: No problems Skin: No problems Vital Signs - Temperature Temperature: 96.8 F Temperature Source: Temporal Artery Scan - Pulse Right Sitting Pulse Rate: 83 Pulse Assessment Method: Automatic Cuff - Respirations Respiratory Rate: 16 Oxygen Delivery Method: Room Air - Blood Pressure Right Arm Blood Pressure: 131/82 Blood Pressure Mean: 98 Blood Pressure Source: Automatic Cuff Disposition - Disposition OB Disposition: Admit, Triage I agree with the RN Medical Screening Exam: Yes Case reviewed; plan agreed upon as documented in EMR&OBIX.: Yes Diagnosis: Spontaneous rupture of membranes
[2022-09-15] MEDS: ACETAMINOPHEN TAB 325 MG TAB PO PRN ×5 (01:34→22:06)
[2022-09-15 06:35] LABS: Basophils % (A) 0 %; Eosinophils % (A) 0 %; HGB 11.2 gm/dL (11.4-16.0); Lymphocytes # (A) 2.2 k/uL (1.0-4.8); Lymphocytes % (A) 19 %; MCV 81.1 fL (80.0-100.0); Mean Platelet Volume 7.8; Monocytes # (A) 0.8 k/uL (0-1.0); Monocytes % (A) 7 %; Neutrophils # (A) 8.4 k/uL (1.3-7.7); Neutrophils % (A) 72 %; Platelet Count 232 k/uL (150-450); RBC 4.32 m/uL (3.80-5.40); RDW 14.7 % (11.5-15.5); WBC 11.7 k/uL (3.8-10.6)
[2022-09-15] MEDS: SENNOSIDES-DOCUSATE SODIUM 1 EACH TAB PO SCH ×2 (08:08→20:31)
--- NOTE | 2022-09-15 12:35 | P.PNOBGVD ---
Subjective - Subjective Principal diagnosis: day 1 Patient reports: Reports appetite normal ( day 1), Reports voiding normally, Reports pain well controlled, Reports ambulating normally Doran: doing well, bottle feeding Objective - Latest Vital Signs Latest vital signs: Vital Signs Temp Pulse Resp BP Pulse Ox 09/15/22 08:00 97.6 F 98 18 129/82 97 09/15/22 04:00 97.9 F 85 16 121/79 97 09/14/22 23:35 96.9 F L 91 16 132/69 09/14/22 23:05 97.1 F L 87 16 115/75 09/14/22 22:35 97.7 F 96 16 143/77 09/14/22 22:20 96 16 138/71 09/14/22 22:09 96.8 F L 83 16 131/82 09/14/22 22:05 98.6 F 99 16 138/68 09/14/22 21:50 102 H 16 137/77 09/14/22 21:35 99.0 F 112 H 18 147/70 09/14/22 15:05 96.8 F L 83 16 131/82 09/14/22 13:53 97.5 F L 98 16 126/87 99 Intake and Output 09/14/22 09/15/22 09/15/22 22:59 06:59 14:59 Intake Total 174.733 600 Output Total 110 Balance 174.733 -110 600 Intake: Intake, IV Titration 174.733 Amount Oxytocin 30 Units/500 ml 174.733 Ns 30 unit In Saline 1 500ml.bag @ Per Protocol IV .Q0M [facility] Rx#:[id number] Oral 600 Output: Output, Quantitative 110 Blood Loss Other: # Voids 0 0 2 Weight 93.894 kg - Exam Extremities: Present: normal Abdomen: Present: normal appearance, soft. Absent: tenderness Uterus: Present: normal, firm - Labs Labs: Abnormal Lab Results - Last 24 Hours (Table) 09/14/22 09/15/22 Range/Units 15:05 05:48 WBC 11.7 H (3.8-10.6) k/uL Hgb 11.2 L (11.4-16.0) gm/dL MCV 79.3 L (80.0-100.0) fL Neutrophils # 8.4 H (1.3-7.7) k/uL Assessment and Plan (1) Term Current Visit: Yes Status: Acute Code(s): Z34.90 - ENCNTR FOR SUPRVSN OF NORMAL , UNSP, UNSP TRIMESTER SNOMED Code(s): 48821612 (2) Previous section Current Visit: No Status: Acute Code(s): Z98.89 - OTHER SPECIFIED POSTPROCEDURAL STATES * DO NOT USE * SNOMED Code(s): 923272971 (3) GBS (group B Streptococcus carrier), +RV culture, currently Current Visit: Yes Status: Acute Code(s): O99.820 - STREPTOCOCCUS B CARRIER STATE COMPLICATING SNOMED Code(s): 0085978052684 (4) , delivered Current Visit: Yes Status: Acute Code(s): O34.219 - MATERNAL CARE FOR UNSP TYPE SCAR FROM PREVIOUS DEL SNOMED Code(s): 244577652 (5) Nuchal cord Current Visit: Yes Status: Acute Code(s): HCL8928 - SNOMED Code(s): 721508279 (6) Perineal laceration with delivery, second degree Current Visit: Yes Status: Acute Code(s): O70.1 - SECOND DEGREE PERINEAL LACERATION DURING DELIVERY SNOMED Code(s): 2089371 Plan: day 1 status post successful vaginal after section. Recovering well. Anticipate discharge home tomorrow.
[2022-09-16] VITALS: RESP 16
[2022-09-16] MEDS: ACETAMINOPHEN TAB 325 MG TAB PO PRN (05:15)
[2022-09-16 08:54] VITALS: BP 129/86; PULSE 89; TEMP 98
--- NOTE | 2022-09-16 09:35 | P.DS ---
Providers Date of admission: 09/14/22 14:18 Expected date of discharge: 09/16/22 Attending physician: Yesi Rojas Primary care physician: Stated None - Discharge Diagnosis(es) (1) Term Current Visit: Yes Status: Acute (2) Previous section Current Visit: No Status: Acute (3) GBS (group B Streptococcus carrier), +RV culture, currently Current Visit: Yes Status: Acute (4) , delivered Current Visit: Yes Status: Acute (5) Nuchal cord Current Visit: Yes Status: Acute (6) Perineal laceration with delivery, second degree Current Visit: Yes Status: Acute Hospital Course: This is a 32-year-old 3 now para 3 woman who is admitted with spontaneous rupture of membranes at 39 weeks gestation. She had a history of a previous low transverse section as well as one successful vaginal after . She desired a trial of labor. Her son benefits were reviewed. Following admission she did receive an epidural anesthetic. She ultimately required some Pitocin augmentation of labor. She received group B strep prophylactic antibiotics. She reached complete cervical dilation and went on to deliver a liveborn male over second-degree perineal laceration. She did have some terminal deep variable heart rate decelerations as well as a tight nuchal cord. Apgars were 4 at 1 minute and 7 at 5 minutes and 9 at 10 minutes. Please see the delivery summary for details. The patient's course was entirely unremarkable. By day #1 she was ambulating and voiding without difficulty and her lochia was moderate. Her pain was well- controlled. By day #2 she continued to do well with minimal lochia. She was bottle feeding successfully. [place] circumcision was completed. And she was discharged home with routine instructions for care and follow-up. Procedures: Vaginal after section Patient Condition at Discharge: Good Plan - Discharge Summary New Discharge Prescriptions: No Action busPIRone HCL [Buspirone HCl] 5 mg PO DAILY FLUoxetine HCL [PROzac] 40 mg PO DAILY Vit No.179/Iron/Folic [ Tablet] 1 each PO DAILY Discharge Medication List FLUoxetine HCL [PROzac] 40 mg PO DAILY 08/21/22 [History] busPIRone HCL [Buspirone HCl] 5 mg PO DAILY 08/21/22 [History] Vit No.179/Iron/Folic [ Tablet] 1 each PO DAILY 08/22/22 [History] Follow up Appointment(s)/Referral(s): Yesi Rojas MD [STAFF PHYSICIAN] - 6 Weeks Activity/Diet/Wound Care/Special Instructions: Follow-up in the office in 6 weeks . Call with any concerning signs or symptoms including heavy vaginal bleeding, severe abdominal pain, fever greater than 101, swelling or redness of the lower extremities, foul vaginal discharge, or signs of depression. Nothing in the vagina for 6 weeks after delivery, specifically no intercourse. Discharge Disposition: HOME SELF-CARE
[2022-09-16] MEDS: SENNOSIDES-DOCUSATE SODIUM 1 EACH TAB PO SCH (09:47)
== END 2022-09-16 13:00 | disposition home or self-care (01) | DRG 805 ==
LOC: FBPOP 13:37 → 4FBP 14:18
PROVIDERS: ADMIT Obstetrics & Gynecology; ATTEND Obstetrics & Gynecology
PROC: 10E0XZZ Delivery of Products of Conception, External Approach (ICD-10-PCS; principal; 2022-09-14)
PROC: 0KQM0ZZ Repair Perineum Muscle, Open Approach (ICD-10-PCS; 2022-09-14)
PROC: 4A1HXCZ Monitoring of Products of Conception, Cardiac Rate, External Approach (ICD-10-PCS; 2022-09-14)
DX: O34.211 Maternal care for low transverse scar from previous cesarean delivery (principal); O45.93 Premature separation of placenta, unspecified, third trimester; Z37.0 Single live birth; O99.354 Diseases of the nervous system complicating childbirth; F41.9 Anxiety disorder, unspecified; O76 Abnormality in fetal heart rate and rhythm complicating labor and delivery; O69.1XX0 Labor and delivery complicated by cord around neck, with compression, not applicable or unspecified; O70.1 Second degree perineal laceration during delivery; O99.344 Other mental disorders complicating childbirth; O42.92 Full-term premature rupture of membranes, unspecified as to length of time between rupture and onset of labor; O99.824 Streptococcus B carrier state complicating childbirth; Z3A.39 39 weeks gestation of pregnancy; Z79.899 Other long term (current) drug therapy; Z88.6 Allergy status to analgesic agent; Z90.49 Acquired absence of other specified parts of digestive tract; K58.9 Irritable bowel syndrome, unspecified; O99.62 Diseases of the digestive system complicating childbirth; G43.909 Migraine, unspecified, not intractable, without status migrainosus
CPT/HCPCS: 59025; 84112; 85025; 86850; 86900; 86901; 99213